=== PATIENT | male | born 1960 | race Caucasian/White ===

== ENCOUNTER 2017-02-16 15:24 | Emergency (ER) | payer OTHER ==
[~2017-02-16] VITALS: Ht 172.7 cm; Wt 66.7 kg
[~2017-02-16 15:24] MED LIST: ANAFRANIL50 MG PO; FLEXERIL10 MG PO; GLIPIZIDE5 M1 PO; GLUCOPHAGE1000 MG PO; HYDROCODON-ACE1 EAC7 PO; IBUPROFEN800 MG PO; JANUMET 50/11 TABLET PO; LYRICA300 MG PO; MOTRIN600 MG PO; MOTRIN800 MG PO; TRAMADOL HCL50 MG PO
[2017-02-16 16:03] LABS: HEMATOCRIT 34.3 % (38.0-50.0); HEMOGLOBIN 12.1 G/DL (12.5-16.6); MCH 33.6 PG (29.0-34.0); MCHC 35.3 G/DL (30.0-36.0); MCV 95.3 FL (86-99); PLATELET COUNT 62 K/uL (156-360); RBC DIS.WIDTH-CV 13.2 % (11.8-14.6); RBC DIS.WIDTH-SD 46.3 % (39-53); WHITE BLOOD COUNT 6.2 K/uL (4.1-10.2)
[2017-02-16 16:09] LABS: CHLORIDE 90 mEq/L (99-109); POTASSIUM 3.3 mEq/L (3.7-5.4); SODIUM 130 mEq/L (136-147)
[2017-02-16 16:11] LABS: GLUCOSE 310 mg/dL (70-99); TOTAL PROTEIN 6.7 g/dL (6.4-8.3)
[2017-02-16 16:13] LABS: TOTAL BILIRUBIN 0.3 mg/dL (0.0-1.0)
[2017-02-16 16:14] LABS: ALKALINE PHOSPHATASE 62 IU/L (3-129); CREATININE 0.8 mg/dL (0.6-1.3); GFR ESTIMATE (CALCULATED) > 59 mL/min/
[2017-02-16 16:16] LABS: AST (GOT) 38 IU/L (2-34); UREA NITROGEN (BUN) 17 mg/dL (9-23)
[2017-02-16 16:17] LABS: ALT (GPT) 43 IU/L (3-49)
[2017-02-16 16:18] LABS: LIPASE 45 U/L (1.0-51.0)
[2017-02-16 17:41] LABS: APPEARANCE SL.HAZY ((CLEAR)); BILIRUBIN NEGATIVE; BLOOD LARGE; COLOR YELLOW ((YELLOW)); GLUCOSE (STRIP) >=500; KETONES 5; LEUKOCYTES SMALL; NITRITE POSITIVE; PROTEIN (STRIP) 30; SPECIFIC GRAVITY 1.017 (1.000-1.030); UROBILINOGEN 0.2 MG/DL (0.2-1.0)
[2017-02-16 18:13] LABS: BACTERIA 2+ /HPF; EPITHELIAL CELLS 1+ /HPF; MUCUS NONE SEEN /LPF; UCUL ADDED? YES; WHITE BLOOD CELLS 0-5 /HPF (0-5)
[2017-02-16 23:00] VITALS: BP 121/78
[2017-02-17] MEDS ORDERED: SUPER MULTIVIT1 EACH PO (01:01)
[2017-02-17] MEDS ORDERED: ZOFRAN ODT4 MG PO (01:01)
[2017-02-17] MEDS ORDERED: TYLENOL PM EX-1 EACH PO (01:01)
[2017-04-06] MEDS ORDERED: ALDACTONE100 MG PO (10:27)
[2017-04-06] MEDS ORDERED: MICRO-K10 ME2 PO (10:29)
[2017-04-06] MEDS ORDERED: LACTULOSE10 GM/151 PO (10:30)
[2017-04-06] MEDS ORDERED: AMARYL2 MG PO (10:32)
[2017-04-06] MEDS ORDERED: HYDROCODON-ACE1 EAC8 PO (10:32)
[2017-04-06] MEDS ORDERED: NEURONTIN600 MG PO (10:33)
[2017-04-06] MEDS ORDERED: LASIX20 MG PO (10:34)
[2017-04-06] MEDS ORDERED: MORPHINE SULFAT30 M2 PO (10:35)
== END 2017-02-17 02:16 | disposition left against medical advice (07) ==
LOC: EME 15:24
DX: I82.890 Acute embolism and thrombosis of other specified veins (principal); N39.0 Urinary tract infection, site not specified; D73.5 Infarction of spleen; K76.0 Fatty (change of) liver, not elsewhere classified; F10.21 Alcohol dependence, in remission; E11.9 Type 2 diabetes mellitus without complications; F42.9 Obsessive-compulsive disorder, unspecified; Z82.49 Family history of ischemic heart disease and other diseases of the circulatory system; F17.210 Nicotine dependence, cigarettes, uncomplicated
CPT/HCPCS: 74176; 74177; 76705; 80053; 81003; 82948; 83690; 85027; 87077; 87086; 87186; 99281; 99284; J0696; J3010; J7030

== ENCOUNTER → 2017-04-07 | Outpatient (CLI) | payer OTHER ==
[~2017-04-07] VITALS: Ht 175.3 cm; Wt 76.2 kg
[~2017-04-07] MED LIST changes: +ALDACTONE100 MG PO; +AMARYL2 MG PO; +HYDROCODON-ACE1 EAC8 PO; +LACTULOSE10 GM/151 PO; +LASIX20 MG PO; +MICRO-K10 ME2 PO; +MORPHINE SULFAT30 M2 PO; +NEURONTIN600 MG PO; +SUPER MULTIVIT1 EACH PO; +TYLENOL PM EX-1 EACH PO; +ZOFRAN ODT4 MG PO
== END | disposition home or self-care (01) ==
LOC: AMB 08:00
PROVIDERS: Internal Medicine Gastroenterology
PROC: 0DJ08ZZ Inspection of Upper Intestinal Tract, Via Natural or Artificial Opening Endoscopic (ICD-10-PCS; principal; 2017-04-07)
DX: K76.6 Portal hypertension (principal); K31.89 Other diseases of stomach and duodenum; D73.5 Infarction of spleen; Z87.19 Personal history of other diseases of the digestive system; K70.0 Alcoholic fatty liver; F17.200 Nicotine dependence, unspecified, uncomplicated; E11.42 Type 2 diabetes mellitus with diabetic polyneuropathy; R60.0 Localized edema; R74.8 Abnormal levels of other serum enzymes; R53.1 Weakness; K59.09 Other constipation; Z79.84 Long term (current) use of oral hypoglycemic drugs; Z82.49 Family history of ischemic heart disease and other diseases of the circulatory system; Z83.49 Family history of other endocrine, nutritional and metabolic diseases; Z83.3 Family history of diabetes mellitus; Z82.3 Family history of stroke
CPT/HCPCS: 82948; 93005

== ENCOUNTER 2017-05-14 10:31 | Emergency (ER) | payer OTHER ==
[~2017-05-14] VITALS: Ht 172.7 cm; Wt 65.9 kg
[2017-05-14 11:09] LABS: HEMATOCRIT 36.7 % (38.0-50.0); HEMOGLOBIN 12.6 G/DL (12.5-16.6); MCH 31.6 PG (29.0-34.0); MCHC 34.3 G/DL (30.0-36.0); PLATELET COUNT 67 K/uL (156-360); RBC DIS.WIDTH-CV 12.7 % (11.8-14.6); RED BLOOD COUNT 3.99 M/uL (4.00-5.50); WHITE BLOOD COUNT 7.1 K/uL (4.1-10.2)
[2017-05-14 11:17] LABS: CHLORIDE 96 mEq/L (99-109); POTASSIUM 3.1 mEq/L (3.7-5.4); SODIUM 136 mEq/L (136-147)
[2017-05-14 11:19] LABS: GLUCOSE 233 mg/dL (70-99)
[2017-05-14 11:23] LABS: CREATININE 0.8 mg/dL (0.6-1.3); GFR ESTIMATE (CALCULATED) > 59 mL/min/ (58.99-99999)
[2017-05-14 11:24] LABS: UREA NITROGEN (BUN) 14 mg/dL (9-23)
[2017-05-14 11:29] LABS: TROP-I INTERPRETATION NEGATIVE; TROPONIN-I 0.02 ng/mL (0.0-0.30)
[2017-05-14 13:10] LABS: D-DIMER ELISA < 150.00 ng/mLDDU (<230)
[2017-05-14 13:11] VITALS: BP 138/79
[2017-05-15] MEDS ORDERED: ATIVAN1 MG PO (00:44)
== END 2017-05-14 13:11 | disposition left against medical advice (07) ==
LOC: EME 10:31
PROVIDERS: Nurse Practitioner Family
DX: R00.2 Palpitations (principal); G47.9 Sleep disorder, unspecified; F41.9 Anxiety disorder, unspecified; F17.200 Nicotine dependence, unspecified, uncomplicated; E11.40 Type 2 diabetes mellitus with diabetic neuropathy, unspecified; Z79.84 Long term (current) use of oral hypoglycemic drugs; Z86.73 Personal history of transient ischemic attack (TIA), and cerebral infarction without residual deficits; Z88.8 Allergy status to other drugs, medicaments and biological substances
CPT/HCPCS: 71046; 80048; 84484; 85027; 85379; 93005; 99281; 99285; J7030

== ENCOUNTER 2017-05-14 21:33 | Emergency (ER) | payer OTHER ==
[~2017-05-14] VITALS: Ht 172.7 cm; Wt 65.4 kg
[2017-05-15] MEDS ORDERED: ATIVAN1 MG PO (00:44)
[2017-05-15 00:57] VITALS: BP 102/73
== END 2017-05-15 00:58 | disposition home or self-care (01) ==
LOC: EME 21:33
DX: R00.2 Palpitations (principal); F41.9 Anxiety disorder, unspecified; E86.0 Dehydration; R94.31 Abnormal electrocardiogram [ECG] [EKG]; E11.40 Type 2 diabetes mellitus with diabetic neuropathy, unspecified; F17.200 Nicotine dependence, unspecified, uncomplicated; Z86.73 Personal history of transient ischemic attack (TIA), and cerebral infarction without residual deficits; Z90.49 Acquired absence of other specified parts of digestive tract; Z88.8 Allergy status to other drugs, medicaments and biological substances
CPT/HCPCS: 93005; 99281; 99285; J7040